=== PATIENT | male | born 1995 | race Caucasian/White ===

== ENCOUNTER 2021-02-24 14:09 | Emergency (ER) | payer SELFPAY ==
[2021-02-24 14:19] VITALS: BP 153/83; PULSE 78; RESP 16; TEMP 36.4; O2SAT 99
--- NOTE | 2021-02-24 14:59 | ED.URI ---
HPI - URI/Sore Throat General Chief Complaint: Upper Respiratory Infection Stated Complaint: cough Time Seen by Provider: 02/24/21 14:12 Source: patient and RN notes reviewed Limitations: no limitations History of Present Illness HPI Narrative: The vaccinated patient, who is a smoker, presents with 1/2-week history cough-associate with some scant sputum production. No fever, sore throat, earache, loss of taste smell, CP, vomiting/diarrhea, S OB, wheezing/sneezing-he still has has an inhaler from the past Related Data Allergies Allergy/AdvReac Type Severity Reaction Status Date / Time No Known Allergies Allergy Verified 02/24/21 14:16 Review of Systems Review of Systems: General/Constitutional: No weight loss,fever Eyes: N0: Redness,discharge Ears/Nose/Throat: No: Epistaxis,ear discharge Respiratory: Denies: Hemoptysis Gastrointestinal: No Vomiting, Bleeding-rectal Skin: No Lumps, eruption Neurologic: No Focal Weakness,Sz Hematologic: Denies: Petechiae/Purpura Psychiatric: No: Suicida ideationl PMFSH Comments At time of signature, agree with nursing past medical, family history. There is no relevant family history pertinent to the presenting complaint Exam Narrative: General Appearance: Well appearing, , Conjunctiva clear Ears: Auditory canal normal, TM normal Nose: Rhinorrhea, Mucousal erythema Mouth/Throat: MM moist, Uvula midline, Pharyngeal erythema , Supple, No adenopathy CardioPulmonary: No respiratory distress, Breath sounds equal, Clear to auscultation, RRR Musculoskeletal: Non tender, Normal strength, Warm, Dry Neurological: A&O x3, Normal affect Course Vital Signs Vital signs: Vital Signs Temperature 97.6 F 02/24/21 14:19 Pulse Rate 78 02/24/21 14:19 Respiratory Rate 16 02/24/21 14:19 Blood Pressure 153/83 H 02/24/21 14:19 Pulse Oximetry 99 02/24/21 14:19 Temperature 97.6 F 02/24/21 14:19 Pulse Rate 78 02/24/21 14:19 Respiratory Rate 16 02/24/21 14:19 Blood Pressure 153/83 H 02/24/21 14:19 Pulse Oximetry 99 02/24/21 14:19 MDM - URI/Sore Throat Lab Data Labs: Lab Results 02/24/21 Range/Units 14:30 POC SARS CoV-2 Ag Negative (Negative) Discharge Plan Discharge Clinical Impression: Cough Patient Disposition: Home, Self-Care Condition: Stable Instructions: Acute Cough (ED) Prescriptions: New azithromycin 250 mg tablet See Rx Instructions .ROUTE .COMPLEX Qty: 6 RF: 0 benzonatate 100 mg capsule 100 mg PO TID PRN (Reason: cough) Qty: 20 RF: 2 Follow-up/Referrals: UNKNOWN,DOCTOR [Primary Care Provider] - Stand Alone Forms: Work/School Release IP
== END 2021-02-24 15:08 | disposition home or self-care (01) ==
PROVIDERS: Emergency Provider Emergency Medicine
DX: R05.9 Cough, unspecified (principal); Z20.822 Contact with and (suspected) exposure to COVID-19
CPT/HCPCS: 87426; 99213; C9803; G0463

== ENCOUNTER 2022-03-24 12:20 | Emergency (ER) | payer OTHER, SELFPAY ==
[2022-03-24 12:37] VITALS: BP 131/88; PULSE 89; RESP 18; TEMP 36.4; O2SAT 99
--- NOTE | 2022-03-24 12:45 | ED.URI ---
HPI - URI/Sore Throat General Chief Complaint: Upper Respiratory Infection Stated Complaint: vomiting,diarrhea Time Seen by Provider: 03/24/22 12:40 Source: patient Mode of arrival: ambulatory Limitations: no limitations History of Present Illness HPI Narrative: Bal is a 27-year-old male patient presenting to the clinic today with complaints of nausea,vomiting, diarrhea, cough, congestion, and fever. He reports that his fever was 100.9? F. States that this has been going on for the last 3 days. Denies any known exposure to anybody with COVID or influenza. Does have some some stomach cramps that come and go. He is passing gas. He denies any blood in the stool. States that he has had unknown amount of diarrhea stools this morning but has vomited twice. MD elicited complaint: fever, cough, nasal congestion and other ( Nausea, diarrhea, vomiting) Related Data Allergies Allergy/AdvReac Type Severity Reaction Status Date / Time No Known Allergies Allergy Verified 03/24/22 12:52 Review of Systems Review of Systems: Pertinent positives per HPI. Patient denies any fever, chills, rash, headache, visual changes, dizziness, cough, shortness of breath, chest pain, palpitations, constipation, abdominal pain, or any urinary issues. PMFSH Comments At the time of my signature, I reviewed and agree with the nursing past medical, surgical, social, and family history. There is no relevant family history pertinent to the patient complaint. Exam Narrative: General: Well-developed, well nourished, in no apparent distress Head: Normocephalic, atraumatic Eyes: Pupils equally round and reactive to light bilaterally, EOM intact, sclera and conjunctive clear, no discharge, lids normal Ears: TMs intact and clear, ear canals clear, no drainage, grossly hearing normal. Nose: Nares patent, clear nasal discharge, no inflammation, no sinus tenderness. Mouth: Oral pharynx without lesions or masses, good dentition, MMM. Oropharynx red Neck: Supple, trachea midline, no enlargement of anterior or posterior cervical nodes, no thyroid masses or goiter palpable. Cardio: Regular rate and rhythm, s1 and s2 normal, no murmur appreciated. Resp: Clear to auscultation bilaterally, no rhonchi, rales, wheezing or rubs Abdomen: Soft, pliable, bowel sounds present all 4 quadrants, no tenderness to palpation, no CVAT tenderness, no organomegaly Course Course Emergency Course: Portions of this record may have been created with voice recognition software. Level of Care: Express Care Visit Vital Signs Vital signs: Vital Signs Temperature 36.4 C 03/24/22 12:37 Pulse Rate 89 03/24/22 12:37 Respiratory Rate 18 03/24/22 12:37 Blood Pressure 131/88 03/24/22 12:37 Pulse Oximetry 99 03/24/22 12:37 Oxygen Delivery Room Air 03/24/22 12:37 Temperature 36.4 C 03/24/22 12:37 Pulse Rate 89 03/24/22 12:37 Respiratory Rate 18 03/24/22 12:37 Blood Pressure 131/88 03/24/22 12:37 Pulse Oximetry 99 03/24/22 12:37 Oxygen Delivery Room Air 03/24/22 12:37 Vital signs reviewed MDM - URI/Sore Throat MDM Narrative Medical decision making narrative: At the time of visit patient is resting comfortably on the exam table. Influenza testing was performed and he patient is positive for influenza A. Prescription for Tamiflu and Zofran was sent to the pharmacy. Supportive measures were discussed with the patient he voiced understanding of discharge instructions and agrees to treatment plan. Differential Diagnosis Differential diagnosis: Likely upper respiratory infection, otitis media, sinusitis, viral infection, bronchitis, influenza, pharyngitis and other ( COVID) Discharge Plan Discharge Clinical Impression: Influenza A, Viral gastroenteritis Patient Disposition: Home, Self-Care Condition: Stable Instructions: Antibiotic Form, Influenza (ED), Gastroenteritis (ED) Additional Instructions: Take prescription medicatio
== END 2022-03-24 12:55 | disposition home or self-care (01) ==
PROVIDERS: Emergency Provider Nurse Practitioner Family
DX: J10.1 Influenza due to other identified influenza virus with other respiratory manifestations (principal); A08.4 Viral intestinal infection, unspecified
CPT/HCPCS: 87804; 99213; G0463